=== PATIENT | male | born 1965 | race Caucasian/White ===

== ENCOUNTER → 2018-02-23 | Emergency (ER) | payer OTHER ==
[~2018-02-23] VITALS: Ht 182.9 cm; Wt 108.9 kg
[~2018-02-23] MED LIST: METOPROLOL SUCC50 MG; VALSARTAN-HCTZ1 EAC2
== END | disposition home or self-care (01) ==
LOC: ER 18:41
DX: K52.9 Noninfective gastroenteritis and colitis, unspecified (principal)

== ENCOUNTER 2021-09-06 15:08 | Emergency (ER) | payer OTHER ==
[~2021-09-06] VITALS: Ht 185.4 cm; Wt 100.7 kg
[2021-09-06] MEDS ORDERED: LOSARTAN POTASS25 MG (15:39)
[2021-09-06] MEDS ORDERED: ORPHENADRINE C100 MG PO (20:40)
[2021-09-06] MEDS ORDERED: DICLOFENAC POTA50 MG PO (20:40)
== END 2021-09-06 21:28 ==
LOC: ER 15:08
DX: S83.91XA Sprain of unspecified site of right knee, initial encounter (principal); X58.XXXA Exposure to other specified factors, initial encounter; Y92.89 Other specified places as the place of occurrence of the external cause; I10 Essential (primary) hypertension

== ENCOUNTER 2025-03-31 05:00 | Emergency (ER) | payer OTHER ==
[~2025-03-31] VITALS: Ht 185.4 cm; Wt 102.5 kg
[~2025-03-31 05:00] MED LIST changes: +DICLOFENAC POTA50 MG PO; +LOSARTAN POTASS25 MG; +ORPHENADRINE C100 MG PO
[2025-03-31] MEDS ORDERED: CHILDREN'S ASPI81 MG PO (05:10)
[2025-03-31] MEDS ORDERED: HYOSCYAMINE SULFATE 0.125 MG TAB.SUBL SL STA (07:52)
[2025-03-31] MEDS ORDERED: FAMOtidine 10 MG/ML (4ML VIAL) IV PUSH STA (07:53)
== END 2025-03-31 08:17 | disposition home or self-care (01) ==
LOC: ER 05:00
DX: R12 Heartburn (principal)

== ENCOUNTER 2025-08-31 09:20 | Emergency (ER) | payer OTHER ==
[~2025-08-31] VITALS: Ht 182.9 cm; Wt 98.0 kg
[~2025-08-31 09:20] MED LIST changes: +CHILDREN'S ASPI81 MG PO
[2025-08-31 10:33] VITALS: BP 129/86; O2SAT 100
[2025-08-31] MEDS ORDERED: DEXAMETHASONE SODIUM PHOSPHATE 4 MG/ML VIAL IV ONE (11:15)
[2025-08-31] MEDS ORDERED: CEFTRIAXONE SODIUM 1,000 MG VIAL IV ONE (11:15)
[2025-08-31] MEDS ORDERED: TAMSULOSIN HCL 0.4 MG CAP PO ONE (11:15)
[2025-08-31] MEDS ORDERED: KETOROLAC TROMETHAMINE 30 MG VIAL IV ONE (11:15)
[2025-08-31] MEDS ORDERED: FAMOTIDINE/PF 20 MG/2 ML VIAL IV ONE (11:15)
[2025-08-31] MEDS ORDERED: ORPHENADRINE CITRATE 30 MG/ML AMPUL IV ONE (11:15)
[2025-08-31] MEDS ORDERED: 0.9 % SODIUM CHLORIDE 1,000 ML IV SCH (11:15)
[2025-08-31 12:53] LABS: BASO % 0.6 % (0.1-1.2); EOS # 0.05 (0.04-0.54); EOS % 0.4 % (0.7-7.0); LYMPH # 1.39 (1.18-3.74); LYMPH % 12.3 % (19.3-53.1); MEAN PLATELET VOLUME 11.10 fl (9.4-12.4); MONO # 0.85 (0.24-0.82); MONO % 7.5 % (4.7-12.5); NEUT # 8.41 (1.56-6.13); NEUT % 74.8 % (34.0-71.1); RED CELL DISTRIBUTION WIDTH 12.1 % (11.6-14.4)
[2025-08-31 12:59] LABS: ERYTHROCYTE SEDIMENTATION RATE 6 mm/hr (0-20)
[2025-08-31 13:19] LABS: BASOPHIL MAN 1.0 %; EOSINOPHIL MAN 1.0 %; LYMPHOCYTE MAN 9.0 %; MONOCYTE MAN 2.0 %; NEUTROPHILS MAN 83.0 %
[2025-08-31 13:24] LABS: ALT/SGPT 34 U/L (12-78); AST/SGOT 16 U/L (15-37); BILIRUBIN TOTAL 2.53 mg/dL (0.3-1.2); BUN CREA RATIO 17 (7.0-25.0); CREATININE SERUM 1.19 mg/dL (0.70-1.30); GFR 62.57; GLOBULINA 3.0 G/DL (2.4-3.5); GLUCOSE FASTING 122 mg/dL (65-100); OSMOLALITY SERUM 280 MOSM/KG (275-295)
[2025-08-31 13:34] LABS: URINE APPEARANCE Clear; URINE BILIRRUBIN Negative (NEGATIVE); URINE BLOOD Negative; URINE COLOR Yellow; URINE GLUCOSE Negative (NEGATIVE); URINE KETONE Negative (NEGATIVE); URINE LEUKOCYTE Negative; URINE NITRATE Negative; URINE PROTEIN Negative (NEGATIVE); URINE UROBILINOGEN 0.2 E.U./dl
[2025-08-31 13:39] LABS: URINE EPITHELIAL CELLS 2.7 uL (0.0-38.8); URINE RBC 3.6 uL (0.0-20.8); URINE WBC 3.8 uL (0.0-23.2)
[2025-08-31 13:41] LABS: URINE BACTERIA 3.4 uL (0.0-1933); URINE CAST 0.70 uL (0.0-1.40)
[2025-08-31] MEDS ORDERED: CIPRO500 MG PO (16:58)
[2025-08-31] MEDS ORDERED: PYRIDIUM DS200 MG PO (16:58)
[2025-08-31] MEDS ORDERED: TAMSULOSIN HCL0.4 MG PO (16:58)
== END 2025-08-31 18:38 | disposition home or self-care (01) ==
LOC: ER 09:21
PROVIDERS: Student in an Organized Health Care Education/Training Program
DX: N40.0 Benign prostatic hyperplasia without lower urinary tract symptoms (principal); N30.80 Other cystitis without hematuria; I10 Essential (primary) hypertension; Z86.79 Personal history of other diseases of the circulatory system; N32.89 Other specified disorders of bladder